=== PATIENT | female | born 1985 | race African-American/Black ===

== ENCOUNTER 2023-02-28 03:55 | Emergency (ER) | payer MEDICAID ==
[~2023-02-28] VITALS: Ht 172.7 cm; Wt 115.6 kg
[2023-02-28] MEDS ORDERED: FAMOTIDINE 20MG/2ML VIAL IV ONE (05:45)
[2023-02-28] MEDS ORDERED: ONDANSETRON HCL 4MG/2ML INJ IV ONE (05:45)
[2023-02-28] MEDS ORDERED: SODIUM CHLORIDE 0.9% 1,000 ML IV ONE (05:45)
[2023-02-28 06:09] LABS: HEMOGLOBIN. 8.9 g/dL (12.0-16.0); MEAN CORPUSCULAR HEMOGLOBIN 39.3 pg (28.0-32.0); MEAN CORPUSCULAR VOLUME 115.1 fL (81.0-99.0); MEAN PLATELET VOLUME 7.4 fl (7.4-10.4); PLATELET 558 x1000/uL (130-400); RED BLOOD CELL COUNT 2.26 mill/uL (4.2-5.4); RED CELL DISTRIBUTION WIDTH 18.1 % (11.6-14.6)
[2023-02-28 06:17] LABS: CHLORIDE 108 mEq/L (98-107)
[2023-02-28 07:38] LABS: NUCLEATED RED BLOOD CELLS 22 /100 WBC; PLATELET ESTIMATE INCREASED
[2023-02-28] MEDS ORDERED: KETOROLAC 30MG/ML VIAL IV ONE (11:15)
[2023-02-28] MEDS ORDERED: TRAMADOL 50MG TABLET PO ONE (11:15)
[2023-02-28] MEDS ORDERED: TRAM-529 MT (11:19)
[2023-02-28] MEDS ORDERED: ONDA4TAB11 PO (11:19)
[2023-02-28 11:39] VITALS: BP 151/98
== END 2023-02-28 13:13 | disposition home or self-care (01) ==
LOC: ER 03:55
DX: K80.50 Calculus of bile duct without cholangitis or cholecystitis without obstruction (principal); K80.20 Calculus of gallbladder without cholecystitis without obstruction; I10 Essential (primary) hypertension
CPT/HCPCS: 36415; 76705; 80053; 81025; 82962; 83690; 85025; 93005; 96361; 96374; 96375; 99285; J1885; J2405; J3490; J7030